=== PATIENT | female | born 1960 | race Caucasian/White ===

== ENCOUNTER → 2017-02-12 | Outpatient (CLI) | payer OTHER | LOC: CIMAGING 08:25 | PROVIDERS: ATTEND Obstetrics & Gynecology Gynecology | DX: Z12.31 Encounter for screening mammogram for malignant neoplasm of breast (principal) | CPT/HCPCS: G0202 ==

== ENCOUNTER → 2017-02-15 | Outpatient (CLI) | payer OTHER | LOC: CIMAGING 12:49 | PROVIDERS: ATTEND Obstetrics & Gynecology Gynecology | DX: R92.8 Other abnormal and inconclusive findings on diagnostic imaging of breast (principal) | CPT/HCPCS: G0206 ==